=== PATIENT | female | born 1945 | race Caucasian/White ===

== ENCOUNTER 2019-08-12 20:57 | Emergency (ER) | payer OTHER ==
[~2019-08-12] VITALS: Ht 167.6 cm; Wt 72.6 kg
[2019-08-12] MEDS ORDERED: TEGRETOL200 MG (21:26)
[2019-08-12] MEDS ORDERED: SYNTHROID75 MCG (21:27)
[2019-08-12] MEDS ORDERED: KEPPRA1000 MG (21:27)
[2019-08-12] MEDS ORDERED: SIMVASTATIN 10 MG (21:28)
[2019-08-12] MEDS ORDERED: ZOVIRAX800 M1 (21:28)
[2019-08-12] MEDS ORDERED: FAMCICLOVIR500 MG PO (21:56)
== END 2019-08-12 23:18 | disposition home or self-care (01) ==
LOC: ER 20:57
DX: B02.8 Zoster with other complications (principal)